=== PATIENT | female | born 1935 | race Two or more races ===

== ENCOUNTER 2018-03-07 13:07 | Inpatient (IN) | payer MEDICARE ==
[~2018-03-07] VITALS: Ht 154.9 cm; Wt 67.6 kg
[~2018-03-07 13:07] MED LIST: AMLO5TAB88 PO; BUPR150T9 PO; DONE10TA43 PO; LOSA100T14 PO; NABU-88 PO; NAPR-681 PO; PARO30TA62 PO; RISP0.5T19 PO; SIMV40TA5 PO; TRIA1TAB92 MT
[2018-03-07] MEDS ORDERED: SODIUM CHLORIDE 0.9% 1,000 ML IV ONE (13:49)
[2018-03-07 15:02] LABS: HEMATOCRIT. 30.6 % (36.0-48.0); HEMOGLOBIN. 9.6 g/dL (12.0-16.0); MEAN CORPUSCULAR HEMOGLOBIN 26.8 pg (28.0-32.0); PLATELET 162 x1000/uL (130-400); RED CELL DISTRIBUTION WIDTH 16.3 % (11.6-14.6)
[2018-03-07 15:14] LABS: CHLORIDE 108 mEq/L (98-107)
[2018-03-07 15:23] LABS: INR 1.1; PARTIAL THROMBOPLASTIN TIME 25.8 sec (23.4-31.0); PROTHROMBIN TIME 10.8 sec (9.1-11.1)
[2018-03-07] MEDS ORDERED: SODIUM CHLORIDE 0.9% 1000ML BAG (SEPSIS BOLUS) IV ONE (15:45)
[2018-03-07] MEDS ORDERED: LEVOFLOXACIN 750MG PREMIX 150 ML IV ONE (15:45)
[2018-03-07 16:12] LABS: CLARITY URINE CLEAR (CLEAR); COLOR URINE YELLOW (YELLOW); KETONES URINE NEGATIVE (NEGATIVE); LEUKOCYTE ESTERASE URINE NEGATIVE (NEGATIVE); NITRITE URINE NEGATIVE (NEGATIVE); OCCULT BLOOD URINE NEGATIVE (NEGATIVE); PROTEIN URINE NEGATIVE (NEGATIVE); SPECIFIC GRAVITY URINE 1.014 (1.005-1.030)
[2018-03-07 17:20] LABS: PLATELET ESTIMATE NORMAL
[2018-03-07 22:00] VITALS: BP 162/72
[2018-03-07 22:35] VITALS: BP 162/72
[2018-03-07] MEDS ORDERED: ACETAMINOPHEN 650MG/20.3ML UDC GT PRN (23:30)
[2018-03-08] VITALS: BP 153/76
[2018-03-08 04:00] VITALS: BP 121/73
[2018-03-08] MEDS: SODIUM CHLORIDE 0.9% INJ 3ML FLUSH IVF SCH ×3 (05:44→21:39)
[2018-03-08 07:19] LABS: HEMATOCRIT. 30.9 % (36.0-48.0); HEMOGLOBIN. 9.8 g/dL (12.0-16.0); MEAN CORPUSCULAR HEMOGLOBIN 26.7 pg (28.0-32.0); MEAN CORPUSCULAR VOLUME 84.3 fL (81.0-99.0); MEAN PLATELET VOLUME 7.2 fl (7.4-10.4); PLATELET 161 x1000/uL (130-400); RED BLOOD CELL COUNT 3.66 mill/uL (4.2-5.4); RED CELL DISTRIBUTION WIDTH 16.1 % (11.6-14.6)
[2018-03-08 08:00] VITALS: BP 152/61
[2018-03-08 08:05] LABS: CHLORIDE 109 mEq/L (98-107)
[2018-03-08] MEDS ORDERED: POTASSIUM CHLORIDE 20MEQ TABLET SR PO SCH (08:15)
[2018-03-08 08:35] LABS: FOLIC ACID (FOLATE) SERUM 6.1 ng/mL (>5.38)
[2018-03-08] MEDS: RISPERIDONE 0.5MG TABLET PO SCH ×2 (10:08→18:04)
[2018-03-08] MEDS: AMLODIPINE 5MG TABLET PO SCH ×2 (10:08→21:38)
[2018-03-08] MEDS: DONEPEZIL HCL 10MG TABLET PO SCH (10:08)
[2018-03-08] MEDS: PAROXETINE HCL 10MG TABLET PO SCH (10:08)
[2018-03-08] MEDS: ENOXAPARIN 40MG/0.4ML SYR SUBCUT SCH (10:09)
[2018-03-08] MEDS: LOSARTAN POTASSIUM 100 MG TABLET PO SCH (10:09)
[2018-03-08 12:00] VITALS: BP 137/58
[2018-03-08 13:49] LABS: PLATELET ESTIMATE NORMAL
[2018-03-08 16:00] VITALS: BP 146/46
[2018-03-08 20:26] VITALS: BP 135/66
[2018-03-08] MEDS ORDERED: BISACODYL 5MG TABLET PO PRN (21:00)
[2018-03-08] MEDS ORDERED: LORAZEPAM 2MG/ML CPJ IV PRN (21:15)
[2018-03-08] MEDS: ATORVASTATIN CALCIUM 40MG TABLET PO SCH (21:38)
[2018-03-08] MEDS ORDERED: POTASSIUM CHLORIDE 20MEQ TABLET SR PO NR (23:00)
[2018-03-09] VITALS: BP 135/70
[2018-03-09] MEDS ORDERED: POTASSIUM CHLORIDE 20MEQ TABLET SR PO NR (00:30)
[2018-03-09] MEDS: SODIUM CHLORIDE 0.45% 1,000 ML IV SCH ×2 (00:44→14:42)
[2018-03-09 05:47] VITALS: BP 156/79
[2018-03-09] MEDS: SODIUM CHLORIDE 0.9% INJ 3ML FLUSH IVF SCH ×3 (06:09→21:11)
[2018-03-09 07:45] LABS: CHLORIDE 109 mEq/L (98-107)
[2018-03-09 07:47] LABS: HEMATOCRIT. 30.4 % (36.0-48.0); HEMOGLOBIN. 9.5 g/dL (12.0-16.0); MEAN CORPUSCULAR HEMOGLOBIN 26.3 pg (28.0-32.0); MEAN CORPUSCULAR VOLUME 84.7 fL (81.0-99.0); MEAN PLATELET VOLUME 7.3 fl (7.4-10.4); PLATELET 169 x1000/uL (130-400); RED BLOOD CELL COUNT 3.59 mill/uL (4.2-5.4); RED CELL DISTRIBUTION WIDTH 16.5 % (11.6-14.6)
[2018-03-09 07:57] LABS: HDL CHOLESTEROL 43 mg/dL (40-59); LDL CHOLESTEROL 62 mg/dL (5-100)
[2018-03-09 08:07] VITALS: BP 143/72
[2018-03-09] MEDS: RISPERIDONE 0.5MG TABLET PO SCH ×2 (08:45→17:50)
[2018-03-09] MEDS: PAROXETINE HCL 10MG TABLET PO SCH (08:45)
[2018-03-09] MEDS: AMLODIPINE 5MG TABLET PO SCH ×2 (08:45→21:22)
[2018-03-09] MEDS: LOSARTAN POTASSIUM 100 MG TABLET PO SCH (08:45)
[2018-03-09] MEDS: ENOXAPARIN 40MG/0.4ML SYR SUBCUT SCH (08:46)
[2018-03-09 10:12] LABS: PLATELET ESTIMATE NORMAL
[2018-03-09] MEDS: DONEPEZIL HCL 10MG TABLET PO SCH (10:37)
[2018-03-09 11:48] VITALS: BP 104/29
[2018-03-09 16:39] VITALS: BP 133/55
[2018-03-09 18:09] LABS: CLARITY URINE CLEAR (CLEAR); COLOR URINE YELLOW (YELLOW); KETONES URINE NEGATIVE (NEGATIVE); LEUKOCYTE ESTERASE URINE NEGATIVE (NEGATIVE); NITRITE URINE NEGATIVE (NEGATIVE); OCCULT BLOOD URINE 2+ (NEGATIVE); PROTEIN URINE NEGATIVE (NEGATIVE); SPECIFIC GRAVITY URINE 1.014 (1.005-1.030)
[2018-03-09 20:00] VITALS: BP 126/66
[2018-03-09] MEDS: ATORVASTATIN CALCIUM 40MG TABLET PO SCH (21:21)
[2018-03-10] VITALS: BP 146/80
[2018-03-10 04:00] VITALS: BP 139/72
[2018-03-10] MEDS: SODIUM CHLORIDE 0.9% INJ 3ML FLUSH IVF SCH ×3 (06:16→21:21)
[2018-03-10] MEDS: SODIUM CHLORIDE 0.45% 1,000 ML IV SCH (06:18)
[2018-03-10] MEDS: RISPERIDONE 0.5MG TABLET PO SCH ×2 (09:34→19:17)
[2018-03-10] MEDS: AMLODIPINE 5MG TABLET PO SCH ×2 (09:34→21:21)
[2018-03-10] MEDS: PAROXETINE HCL 10MG TABLET PO SCH (09:34)
[2018-03-10] MEDS: ENOXAPARIN 40MG/0.4ML SYR SUBCUT SCH (09:35)
[2018-03-10] MEDS: LOSARTAN POTASSIUM 100 MG TABLET PO SCH (09:35)
[2018-03-10 12:00] VITALS: BP 115/61
[2018-03-10] MEDS ORDERED: LEVOFLOXACIN 500MG PREMIX 100 ML IV NR (14:00)
[2018-03-10] MEDS: DONEPEZIL HCL 10MG TABLET PO SCH (14:17)
[2018-03-10 20:00] VITALS: BP 117/55
[2018-03-10 20:11] VITALS: BP 117/55
[2018-03-10] MEDS: ATORVASTATIN CALCIUM 40MG TABLET PO SCH (21:20)
[2018-03-11] MEDS ORDERED: LEVOFLOXACIN 500MG TABLET PO SCH (11:00)
[2018-03-11] MEDS ORDERED: LEVOFLOXACIN 250MG TABLET PO SCH (11:00)
[2018-03-11] MEDS ORDERED: LEVOFLOXACIN 250MG PREMIX 50 ML IV SCH (12:30)
== END 2018-03-10 22:10 | DRG 73 ==
LOC: ER 14:30 → 6WST 17:17 → EDBEDREQ 17:19 → ENRESERV 19:48
PROVIDERS: ADMIT Internal Medicine; ATTEND Internal Medicine
DX: G90.8 Other disorders of autonomic nervous system (principal); G93.41 Metabolic encephalopathy; C91.10 Chronic lymphocytic leukemia of B-cell type not having achieved remission; N39.0 Urinary tract infection, site not specified; E86.0 Dehydration; E87.6 Hypokalemia; I10 Essential (primary) hypertension; F03.90 Unspecified dementia, unspecified severity, without behavioral disturbance, psychotic disturbance, mood disturbance, and anxiety; D53.9 Nutritional anemia, unspecified; R29.6 Repeated falls; R58 Hemorrhage, not elsewhere classified; W18.30XA Fall on same level, unspecified, initial encounter; F32.9 Major depressive disorder, single episode, unspecified; E78.00 Pure hypercholesterolemia, unspecified; R26.2 Difficulty in walking, not elsewhere classified; K59.00 Constipation, unspecified; Z80.6 Family history of leukemia; Z79.899 Other long term (current) drug therapy; Z90.49 Acquired absence of other specified parts of digestive tract; Z91.81 History of falling
CPT/HCPCS: 36415; 70551; 71045; 76770; 80048; 80061; 82607; 82746; 82962; 83605; 83880; 84443; 84484; 87077; 87186; 93005; 96361; 96365; 96366; 97163; 99285; C1893; J1650; J1956; J2060; J7030; A4315